=== PATIENT | female | born 2000 | race Caucasian/White ===

== ENCOUNTER 2021-11-27 00:24 | Emergency (ER) | payer OTHER, SELFPAY ==
[2021-11-27] MEDS ORDERED: Ondansetron ODT 4 MG TAB ONE (02:01)
== END 2021-11-27 02:05 | disposition home or self-care (01) ==
LOC: ERS 00:24
DX: F10.129 Alcohol abuse with intoxication, unspecified (principal)
CPT/HCPCS: 99284; Q0162